=== PATIENT | female | born 1950 | race Caucasian/White ===

== ENCOUNTER → 2016-12-25 | Outpatient (CLI) | payer BC ==
[~2016-12-25] MED LIST: CHOL100010 PO; CONJ0.3T3 PO; IBUP-103 PO; LEVO1TAB PO; OFLO0.3S4 OPR; OMEG12006 PO; PRED1SUS3 OPR
[2016-12-25 09:45] LABS: BASO % 0.5 %; BASO ABS # 0.03 K/uL (0-0.2); COMPLETE YES; EOS % 2.7 %; HEMATOCRIT 38.8 % (37-47); IG% 0.2 %; LYMPH % 31.6 %; LYMPH ABS # 1.77 K/uL (1.2-3.4); MEAN CELL VOLUME 94.4 fL (80-100); MEAN CORPUSCULAR HEMOGLOBIN 30.9 pg (25-34); MEAN CORPUSCULAR HGB CONC 32.7 g/dl (32-36); MEAN PLATELET VOLUME 10.2 fL (7.4-10.4); PLATELET COUNT 266 K/uL (130-400); RED BLOOD COUNT 4.11 M/uL (4.2-5.4)
[2016-12-25 09:59] LABS: ALT/SGPT 22 U/L (12-78); BLOOD UREA NITROGEN 17 mg/dl (7-18); CALCIUM 9.2 mg/dl (8.5-10.1); CARBON DIOXIDE 30 mmol/L (21-32); CHLORIDE 107 mmol/L (98-107); CHOLESTEROL 273 mg/dl (0-200); CREATININE 1.11 mg/dl (0.60-1.20); GLUCOSE 100 mg/dl (70-99); POTASSIUM 4.3 mmol/L (3.5-5.1); SODIUM 142 mmol/L (136-145)
[2016-12-25 10:10] LABS: ALB/GLOB RATIO 1.1 (0.9-2); ALKALINE PHOSPHATASE 63 U/L (45-117); AST/SGOT 15 U/L (15-37); CHOLESTEROL/HDL RATIO 3.4; HDL CHOLESTEROL 81 mg/dl; LDL CHOLESTEROL CALCULATED 162 mg/dl; THYROID STIMULATING HORMONE 0.742 uIu/ml (0.300-4.500); TRIGLYCERIDES 152 mg/dl (0-150); VERY LOW DENSITY LIPOPROT CALC 30 mg/dl
== END | disposition home or self-care (01) ==
LOC: C.LAB1850 07:39
PROVIDERS: ATTEND Internal Medicine
DX: E03.9 Hypothyroidism, unspecified (principal); E55.9 Vitamin D deficiency, unspecified; E78.5 Hyperlipidemia, unspecified; D72.819 Decreased white blood cell count, unspecified; M85.80 Other specified disorders of bone density and structure, unspecified site

== ENCOUNTER 2021-08-28 12:53 | Observation (INO) ==
[2021-08-28 14:38] LABS: Hematocrit (blood only) 41.9 % (34.1-44.9); Hemoglobin 13.7 g/dl (12.0-16.0); Mean Corpuscular Hgb Conc 32.7 g/dL (32.0-36.0); Mean Corpuscular Volume 94.8 fL (80.0-100.0); Mean Platelet Volume 10.2 fL (9.4-12.3); Platelet Count 287 K/uL (130-400); RDW Coefficient of Variation 12.2 % (11.5-14.5); RDW Standard Deviation 42.5 fL (36.4-46.3); Red Blood Count 4.42 M/uL (3.93-5.22); White Blood Count 5.61 K/ul (4.8-10.8)
[2021-08-28 14:47] LABS: Albumin Globulin Ratio 1.7 (0.9-2); Albumin Level 4.7 gm/dl (3.4-5.0); BUN Creatinine Ratio 16.8 (10-20); Bilirubin,Total 0.5 mg/dl (0.2-1.0); Calcium 9.9 mg/dl (8.5-10.1); Creatinine Clr Calc Pharmacy 43.5 ml/min; Est GFR (African American) 64.4 ml/min; Est GFR (Non-African American) 55.6 ml/min; Globulin 2.8 gm/dl (2.5-4.0); Potassium 4.5 mmol/L (3.5-5.1); Total Protein 7.5 gm/dl (6.0-8.3)
[2021-08-28 14:51] LABS: Partial Thromboplastin Ratio 0.9; Partial Thromboplastin Time 24.5 Seconds (21.0-31.0); Prothrombin Time 10.5 Seconds (9.0-12.0)
[2021-08-28] MEDS ORDERED: OPTIRAY 320 125ml IV ONE (14:58)
[2021-08-28] MEDS: SODIUM CHLORIDE 0.9% 1000ML 1,000 ML IV SCH (15:14)
--- NOTE | 2021-08-28 15:23 | CT Scan Report ---
CT angio neck with con, CT angio head w con, CT head/brain wo con CLINICAL HISTORY: facial numbness TECHNIQUE: Contiguous axial CT images of the head were acquired from the base of the skull to the tessa jhon without intravenous contrast administration. CT angiography of the head and neck was performed f ollowing intravenous administration of iodinated contrast. Coronal and sagittal MIPS were obtained fr om the axial data set and were submitted for review. Automated dose lowering techniques and/or adjus tment according to patient size were utilized for this examination. All measurements were calculated based on NASCET criteria. CT DOSE: 974.81 mGy.cm Comparison: None available at the time of this dictation. FINDINGS: CT head: Areas of decreased attenuation are present in the periventricular and subcortical white doni er bilaterally consistent with small vessel ischemic disease. Generalized cerebral atrophy with comme nsurate enlargement of the ventricles, sulci, and cisterns is also present. There is no acute intracr anial hemorrhage or evidence of acute territorial infarction. No shift of the midline structures, mas s effect, or extra-axial abnormalities are shown. Atherosclerotic calcifications are present in the intracranial segments of the internal carotid arteries. Lungs and soft tissues are unremarkable. CTA Neck: A 3 vessel aortic arch is shown. There is no significant atherosclerotic plaque in the aor tic arch or the origins of the innominate, left common carotid, and left subclavian arteries. The c ommon carotid, external carotid, cervical segments of the internal carotid arteries, and the cervical segments of the vertebral arteries are patent without hemodynamically significant stenosis. The left vertebral artery is dominant. CTA Head: The anterior and posterior cerebral circulations are patent. No hemodynamically significan t stenosis, aneurysm, dissection, or arteriovenous malformation is shown. origin of the right p osterior cerebral artery is seen. IMPRESSION: 1. No acute intracranial hemorrhage, evidence of acute territorial infarction, or other acute intrac ranial disease process. 2. No occlusion, hemodynamically significant stenosis, aneurysm, dissection, or arteriovenous malfor mation in the major intracranial arteries. 3. No occlusion, hemodynamically significant stenosis, or dissection in the major cervical arteries. Assessment of stenosis of the internal carotid arteries is based on NASCET criteria. ACT 112: Negative or not required by law. Electronically signed by: Timi Jacobsen M.D. 08/28/2021 3:21 PM
--- NOTE | 2021-08-28 15:30 | Emergency Department Note ---
History of Present Illness General Chief complaint: Neuro Symptoms/Deficit Stated complaint: NUMBNESS IN FACE Time Seen by Provider: 08/28/21 14:35 Source: patient Mode of arrival: ambulatory Limitations: no limitations History of Present Illness Provider complaint: Facial numbness Onset (ago): hour(s) Location: face Maximum Pain Intensity: 3 Treatments prior to arrival: none This is a 71-year-old female who presents the emergency department with concern for facial numbness. Patient states she first noticed this early this morning around 6am. She states it is both sides of her face and starts in her lower forehead. She denies any other numbness or tingling in any other part of her body. Denies headaches, dizziness, vision changes, new tinnitus, trouble swallowing, trouble walking or sense of being off balance. No history of TIA or CVA. Patient states she takes medication for thyroid dysfunction however no heart problems, high blood pressure, or vascular issues. No recent change in medication or new medications. Patient denies any recent illness, fevers, or chills. She states she did have mild swelling around her eye after she thought she was bit on her eyelid by a bug about a week and a half ago. She states she took Benadryl with improvement for several days. Pt seen during a time of high acuity and national emergency pandemic while wearing PPE. Home Medications Medication Instructions Recorded Confirmed Type cholecalciferol (vitamin D3) 100 4,000 unit PO QAM 05/08/18 08/28/21 History mcg (4,000 unit) capsule (Vitamin D3) calcium carbonate 600 mg-vitamin 1 tab PO QAM 12/04/19 08/28/21 History D3 20 mcg (800 unit) chewable tablet (Caltrate 600 plus D) levothyroxine 100 mcg tablet 100 mcg PO DAILY #90 tab 07/20/20 08/28/21 Rx conjugated estrogens 0.625 mg/gram See Rx Instructions .ROUTE 02/16/21 08/28/21 Rx vaginal cream (Premarin) .COMPLEX #30 gram omega 3 350 mg-dha 235 mg-epa 90 2 cap PO QAM 05/09/21 08/28/21 History mg-fish oil 597 mg capsule,delay rel ([place]-3) tobramycin-dexamethasone 0.3 %-0.1 1 applic OPHTHALMIC (EYE) TID 08/28/21 08/28/21 History % eye ointment (TobraDex) atorvastatin 40 mg tablet 40 mg PO DAILY #30 tab 08/29/21 Rx Allergies Allergy/AdvReac Type Severity Reaction Status Date / Time crab Allergy Intermediate RASH, Verified 08/28/21 17:43 SWELLING scallops Allergy Intermediate RASH, Verified 08/28/21 17:43 SWELLING strawberry Allergy Intermediate Rash Verified 08/28/21 17:43 Sulfa (Sulfonamide Allergy Intermediate RASH/SWELLI Verified 08/28/21 17:43 Antibiotics) NG Past Med/Surg History Medical History (Updated 08/29/21 @ 11:12 by Jovanna Henry DO) Cardiac murmur DX'D A CHILD AND DURING -"DISAPPEARED" PER PT- NO MURMUR PER LAST PCP VISIT IN 12/2018 Chronic hand pain Cough Hyperlipidemia Hypothyroidism Impaired fasting glucose Left inguinal hernia Melanoma STAGE 1A-REMOVED FROM-SHOULDER/BACK AREA Osteopenia Tremor Vaginitis and vulvovaginitis Surgical History Cataract (~2015) right eye History of abdominoplasty History of blepharoplasty (~2004) History of carpal tunnel surgery RIGHT History of cataract surgery LEFT History of section, low transverse X2 1972, 1977 History of colonoscopy History of dilation and curettage History of rhytidectomy (~2004) History of tonsillectomy History of tubal ligation Malignant melanoma of upper back (~07/2016) Stage 1A Left upper back Nausea and vomiting after administration of anesthetic agent WITH ANY NARCOTICS PER PT S/P left inguinal hernia repair (12/18/19) Left Open Inguinal Hernia Repair with Mesh Dr. Lofton 12/18/2019 Status post breast reduction Family History Father Cancer Hypertension Stroke Prostate cancer Mother Diabetes Grandfather Diabetes Grandmother (Maternal) Colorectal cancer Grandmother (Paternal) Colorectal cancer Other Myocardial infarction Denies family history of Ovarian cancer Breast cancer Lung cancer Social History Smoking Status: Former smoker Second Hand Exposure: No; Hx Alcohol Use: Yes Alcohol type: wine Alcohol Intake Frequency: Monthly or Less Hx Substance Use: No Preferred Language: Vietnamese Communication Ability: Effective Visual Impairment: Partially Limited Hearing Ability: Normal Business Insurance Agent Required: No Beliefs That Will Affect Care: None marital status: Current Living Situation: Spouse current occupational status: retired current occupation: housewife How many Children do You have: 2 Feels Safe at Home: Yes Childhood Exposure to Second-Hand Smoke: Yes caffeine: Yes Dental Care, Regularly: Yes Physical Activity Frequency: Daily Seatbelt Use: always Sunscreen Use: Yes Assistive Devices: None Review of Systems A total of 10 systems reviewed and were otherwise negative All systems reviewed & are unremarkable except as noted in HPI & below Physical Exam Vital Signs Vital Signs - 24 hr 08/28/21 13:01 08/28/21 14:30 08/28/21 14:31 Temperature 36.7 C Temperature Source Oral Pulse Rate 67 Pulse Rate [Apical] 62 Pulse Rhythm [Apical] Respiratory Rate 20 18 Respiratory Effort / Characteristics Non-Labored Non-Labored Respiratory Depth Normal Normal Respiratory Pattern Regular Blood Pressure Blood Pressure [Left Arm] 220/90 H Blood Pressure Mean Blood Pressure Mean [Left Arm] 133 Blood Pressure Position [Left Arm] Pulse Oximetry 99 98 98 Oxygen Delivery Method Room Air Room Air Room Air Sepsis Recent Fever Within 48 Hours No Sepsis New/Unexplained Change in Mental Status No Sepsis Action Taken by Nursing No Action Required 08/28/21 15:14 08/28/21 16:07 08/28/21 16:46 Temperature Temperature Source Pulse Rate Pulse Rate [Apical] 55 L 55 L 54 L Pulse Rhythm [Apical] Respiratory Rate 16 16 16 Respiratory Effort / Characteristics Respiratory Depth Respiratory Pattern Blood Pressure Blood Pressure [Left Arm] 191/103 H 199/95 H 200/89 H Blood Pressure Mean Blood Pressure Mean [Left Arm] 132 129 126 Blood Pressure Position [Left Arm] Pulse Oximetry 99 98 97 Oxygen Delivery Method Room Air Room Air Sepsis Recent Fever Within 48 Hours Sepsis New/Unexplained Change in Mental Status Sepsis Action Taken by Nursing 08/28/21 18:00 08/28/21 18:14 08/28/21 18:27 Temperature Temperature Source Pulse Rate Pulse Rate [Apical] 56 L 58 L 57 L Pulse Rhythm [Apical] Regular Respiratory Rate 19 16 16 Respiratory Effort / Characteristics Respiratory Depth Respiratory Pattern Blood Pressure Blood Pressure [Left Arm] 187/90 H 209/77 H 178/74 H Blood Pressure Mean Blood Pressure Mean [Left Arm] 122 121 108 Blood Pressure Position [Left Arm] Pulse Oximetry 98 96 97 Oxygen Delivery Method Room Air Sepsis Recent Fever Within 48 Hours Sepsis New/Unexplained Change in Mental Status Sepsis Action Taken by Nursing 08/28/21 19:00 08/28/21 19:45 08/28/21 20:00 Temperature Temperature Source Pulse Rate 58 L 57 L 72 Pulse Rate [Apical] Pulse Rhythm [Apical] Respiratory Rate 14 13 16 Respiratory Effort / Characteristics Respiratory Depth Respiratory Pattern Blood Pressure 195/84 H 210/77 H 184/99 H Blood Pressure [Left Arm] Blood Pressure Mean 121 121 127 Blood Pressure Mean [Left Arm] Blood Pressure Position [Left Arm] Pulse Oximetry 97 97 97 Oxygen Delivery Method Sepsis Recent Fever Within 48 Hours Sepsis New/Unexplained Change in Mental Status Sepsis Action Taken by Nursing 08/28/21 20:15 08/28/21 20:30 08/28/21 20:45 Temperature Temperature Source Pulse Rate 55 L 66 68 Pulse Rate [Apical] Pulse Rhythm [Apical] Respiratory Rate 13 15 17 Respiratory Effort / Characteristics Respiratory Depth Respiratory Pattern Blood Pressure 198/84 H 183/85 H 165/86 H Blood Pressure [Left Arm] Blood Pressure Mean 122 117 112 Blood Pressure Mean [Left Arm] Blood Pressure Position [Left Arm] Pulse Oximetry 98 97 97 Oxygen Delivery Method Sepsis Recent Fever Within 48 Hours Sepsis New/Unexplained Change in Mental Status Sepsis Action Taken by Nursing 08/28/21 21:00 08/28/21 21:18 08/28/21 22:15 Temperature Temperature Source Pulse Rate 75 51 L Pulse Rate [Apical] 65 Pulse Rhythm [Apical] Respiratory Rate 17 15 19 Respiratory Effort / Characteristics Non-Labored Respiratory Depth Normal Respiratory Pattern Regular Blood Pressure 170/81 H 123/57 L Blood Pressure [Left Arm] 151/66 H Blood Pressure Mean 110 79 Blood Pressure Mean [Left Arm] 94 Blood Pressure Position [Left Arm] Lying Pulse Oximetry 94 95 96 Oxygen Delivery Method Room Air Sepsis Recent Fever Within 48 Hours Sepsis New/Unexplained Change in Mental Status Sepsis Action Taken by Nursing 08/28/21 22:30 08/28/21 22:45 08/28/21 23:00 Temperature Temperature Source Pulse Rate 70 62 65 Pulse Rate [Apical] Pulse Rhythm [Apical] Respiratory Rate 18 14 15 Respiratory Effort / Characteristics Respiratory Depth Respiratory Pattern Blood Pressure 146/66 H 136/62 128/61 Blood Pressure [Left Arm] Blood Pressure Mean 92 86 83 Blood Pressure Mean [Left Arm] Blood Pressure Position [Left Arm] Pulse Oximetry 95 95 95 Oxygen Delivery Method Sepsis Recent Fever Within 48 Hours Sepsis New/Unexplained Change in Mental Status Sepsis Action Taken by Nursing GENERAL: alert, well appearing, well nourished, no distress, non-toxic FACE: Symmetric smile, eye brown raise, puffing of cheeks, no other edema or erythema noted to the face EYE EXAM: normal conjunctiva, PERRL and EOM's grossly intact, no ptosis, no periorbital edema, no nystagmus, small area of redness noted along the eyelid margin to the right upper eyelid OROPHARYNX: no exudate, no erythema, lips, buccal mucosa, and tongue normal and mucous membranes are moist NECK: supple, no nuchal rigidity, no adenopathy, non-tender LUNGS: Clear to auscultation. Normal chest wall mechanics, no w/r/r HEART: no murmurs, S1 normal and S2 normal ABDOMEN: abdomen soft, non-tender, normo-active bowel sounds, no masses, no rebound or guarding. BACK: Back is symmetrical on inspection and there is no deformity, no midline tenderness, no CVA tenderness. SKIN: no rashes and no bruising UPPER EXTREMITIES: upper extremities are grossly normal. FROM, nml pulses b/l. LOWER EXTREMITIES: No pitting edema. FROM, nml pulses b/l. NEURO EXAM: Normal sensorium, cranial nerves II-XII grossly intact, normal speech, no gross weakness of arms, no gross weakness of legs. Gross sensation intact. No ataxia. Course Course 1721: Pt updated on results. Will try to lower BP and see if this helps symptoms. 1854: Pt updated. BP slightly improved, pt states face mildly improved. Administered Medications Discontinued Medications Aspirin (Aspirin 81 Mg Ectab) [facility] [place]: 09/28/21 08:59 Last Admin: 08/29/21 08:37 Dose: Not Given Documented by: [id number] Fish Oil ([place]-3 (Purified Fish Oil) 1 Gm Cap) 2 g[facility] [place]: 09/28/21 08:59 Last Admin: 08/29/21 08:35 Dose: 2 gm Documented by: [id number] Hydralazine HCl (Hydralazine Hcl 20 Mg/Ml Vial) 5 mg IV NOW ONE Stop: 08/28/21 19:02 Last Admin: 08/28/21 19:48 Dose: 5 mg Documented by: [id number] Hydralazine HCl (Hydralazine Hcl 20 Mg/Ml Vial) 5 mg IV NOW ONE Stop: 08/28/21 20:24 Last Admin: 08/28/21 20:43 Dose: 5 mg Documented by: [id number] Sodium Chloride (Nss 1000ml) 1,000 mls @ 250 mls/hr IV .Q4H [facility] Stop: 09/27/21 14:59 Last Admin: 08/29/21 00:54 Dose: Not Given Documented by: [id number] Admin: 08/29/21 00:54 Dose: Not Given Documented by: [id number] Infusion: 08/28/21 18:46 Dose: 0 mls/hr Documented by: [id number] Admin: 08/28/21 15:14 Dose: 250 mls/hr Documented by: [id number] Magnesium Sulfate/Dextrose (Magnesium Sulfate / D5w) 1 gm in 100 mls @ 100 mls/hr IV NOW [facility] Stop: 08/28/21 18:40 Last Infusion: 08/28/21 20:23 Dose: 0 mls/hr Documented by: [id number] Admin: 08/28/21 18:00 Dose: 100 mls/hr Documented by: [id number] Ioversol (Optiray 320 125ml) 120 ml IV ONCE ONE Stop: 08/28/21 14:59 Last Admin: 08/28/21 14:58 Dose: 120 ml Documented by: [id number] Levothyroxine Sodium (Levothyroxine Sodium 100 Mcg Tablet) [facility]: 09/28/21 06:29 Last Admin: 08/29/21 06:04 Dose: 100 mcg Documented by: [id number] Lorazepam (Lorazepam 2 Mg/1 Ml Vial) 0.25 mg IV NOW STA; Protocol Stop: 08/28/21 17:42 Last Admin: 08/28/21 18:00 Dose: Not Given Documented by: [id number] Lorazepam (Lorazepam 0.5 Mg Tab) 0.5 mg PO ONCE ONE Stop: 08/28/21 21:29 Last Admin: 08/28/21 21:35 Dose: 0.5 mg Documented by: [id number] Multivitamins/Minerals (Calcium 600mg + Vit D 400 Iu Tab) 1 tab PO QAM [facility] Stop: 09/28/21 08:59 Last Admin: 08/29/21 08:41 Dose: Not Given Documented by: [id number] Tobramycin/Dexamethasone (Tobramycin/Dexamethasone Oph Oint 3.5 Gm Tube) 1 appln OP TID [facility] Stop: 09/06/21 23:59 Last Admin: 08/29/21 08:36 Dose: 1 appln Documented by: [id number] Vitamin D (Cholecalciferol 1,000 Units 25 Mcg Tab) 4,000 units PO QAM [facility] Stop: 09/28/21 08:59 Last Admin: 08/29/21 08:41 Dose: Not Given Documented by: [id number] Medical Decision Making Differential Diagnosis Differential Diagnosis includes but is not limited to ischemic Stroke, hemorrhagic stroke, bells palsy, mass, neoplasm, migraine headache, seizure, subarachnoid hemorrhage, TIA, and transient global amnesia. Medical Records Attestation: I reviewed the patient's medical records. Home Medications Current Medication List: was personally reviewed by me Laboratory Data Attestation: I reviewed the patient's lab results. Result diagrams: 08/29/21 07:01 08/29/21 07:01 Lab Results 08/28/21 08/28/21 08/28/21 Range/Units 14:05 14:05 14:05 WBC 5.61 (4.8-10.8) K/ul RBC 4.42 (3.93-5.22) M/uL Hgb 13.7 (12.0-16.0) g/dl Hct 41.9 (34.1-44.9) % MCV 94.8 (80.0-100.0) fL MCH 31.0 (25.0-34.0) pg MCHC 32.7 (32.0-36.0) g/dL RDW Std Deviation 42.5 (36.4-46.3) fL RDW Coeff of Ryan 12.2 (11.5-14.5) % Plt Count 287 (130-400) K/uL MPV 10.2 (9.4-12.3) fL PT 10.5 (9.0-12.0) Seconds INR 1.0 (0.9-1.1) APTT 24.5 (21.0-31.0) Seconds PTT Ratio 0.9 Sodium 143 (136-145) mmol/L Potassium 4.5 (3.5-5.1) mmol/L Chloride 105 (98-107) mmol/L Carbon Dioxide 32 (21-32) mmol/L Anion Gap 6 (3-11) BUN 17 (6-23) mg/dl Creatinine 1.01 (0.6-1.2) mg/dl Est Cr Clr Drug Dosing 43.5 ml/min Est GFR ( Amer) 64.4 ml/min Est GFR (Non-Af Amer) 55.6 ml/min BUN/Creatinine Ratio 16.8 (10-20) Glucose 94 (70-99(Fasting)) mg/dl Calcium 9.9 (8.5-10.1) mg/dl Magnesium 2.0 (1.7-2.4) mg/dl Total Bilirubin 0.5 (0.2-1.0) mg/dl AST 18 (13-39) U/L ALT 13 (7-52) U/L Alkaline Phosphatase 52 (34-104) U/L Troponin I High Sens (0-14) pg/ml Total Protein 7.5 (6.0-8.3) gm/dl Albumin 4.7 (3.4-5.0) gm/dl Globulin 2.8 (2.5-4.0) gm/dl Albumin/Globulin Ratio 1.7 (0.9-2) Vitamin B12 (180-914) pg/ml 25-OH Vitamin D Total (30-100) ng/ml Folate (>5.38) ng/ml TSH (0.300-4.500) uIu/ml POC Urine pH (4.5-7.5) POC Urine Protein (Negative) POC Ur Glucose (UA) (Normal) POC Urine Ketones (Negative) POC Urine Blood (Negative) POC Urine Nitrite (Negative) POC Urine Bilirubin (Negative) POC Urine Urobilinogen (Normal) POC U Leukocyte Esteras (Negative) Lyme Disease IgG Ab (Negative) Lyme Disease IgM Ab (Negative) SARS-CoV-2 (PCR) (Negative) Influenza Type A (PCR) (Neg) Influenza Type B (PCR) (Neg) RSV (RT-PCR) (Neg) 08/28/21 08/28/21 08/28/21 Range/Units 14:05 14:05 14:05 WBC (4.8-10.8) K/ul RBC (3.93-5.22) M/uL Hgb (12.0-16.0) g/dl Hct (34.1-44.9) % MCV (80.0-100.0) fL MCH (25.0-34.0) pg MCHC (32.0-36.0) g/dL RDW Std Deviation (36.4-46.3) fL RDW Coeff of Ryan (11.5-14.5) % Plt Count (130-400) K/uL MPV (9.4-12.3) fL PT (9.0-12.0) Seconds INR (0.9-1.1) APTT (21.0-31.0) Seconds PTT Ratio Sodium (136-145) mmol/L Potassium (3.5-5.1) mmol/L Chloride (98-107) mmol/L Carbon Dioxide (21-32) mmol/L Anion Gap (3-11) BUN (6-23) mg/dl Creatinine (0.6-1.2) mg/dl Est Cr Clr Drug Dosing ml/min Est GFR ( Amer) ml/min Est GFR (Non-Af Amer) ml/min BUN/Creatinine Ratio (10-20) Glucose (70-99(Fasting)) mg/dl Calcium (8.5-10.1) mg/dl Magnesium (1.7-2.4) mg/dl Total Bilirubin (0.2-1.0) mg/dl AST (13-39) U/L ALT (7-52) U/L Alkaline Phosphatase (34-104) U/L Troponin I High Sens 3.5 (0-14) pg/ml Total Protein (6.0-8.3) gm/dl Albumin (3.4-5.0) gm/dl Globulin (2.5-4.0) gm/dl Albumin/Globulin Ratio (0.9-2) Vitamin B12 425 (180-914) pg/ml 25-OH Vitamin D Total 113.6 H (30-100) ng/ml Folate 9.57 (>5.38) ng/ml TSH 0.618 (0.300-4.500) uIu/ml POC Urine pH (4.5-7.5) POC Urine Protein (Negative) POC Ur Glucose (UA) (Normal) POC Urine Ketones (Negative) POC Urine Blood (Negative) POC Urine Nitrite (Negative) POC Urine Bilirubin (Negative) POC Urine Urobilinogen (Normal) POC U Leukocyte Esteras (Negative) Lyme Disease IgG Ab (Negative) Lyme Disease IgM Ab (Negative) SARS-CoV-2 (PCR) (Negative) Influenza Type A (PCR) (Neg) Influenza Type B (PCR) (Neg) RSV (RT-PCR) (Neg) 08/28/21 08/28/21 08/28/21 Range/Units 14:46 19:56 20:52 WBC (4.8-10.8) K/ul RBC (3.93-5.22) M/uL Hgb (12.0-16.0) g/dl Hct (34.1-44.9) % MCV (80.0-100.0) fL MCH (25.0-34.0) pg MCHC (32.0-36.0) g/dL RDW Std Deviation (36.4-46.3) fL RDW Coeff of Ryan (11.5-14.5) % Plt Count (130-400) K/uL MPV (9.4-12.3) fL PT (9.0-12.0) Seconds INR (0.9-1.1) APTT (21.0-31.0) Seconds PTT Ratio Sodium (136-145) mmol/L Potassium (3.5-5.1) mmol/L Chloride (98-107) mmol/L Carbon Dioxide (21-32) mmol/L Anion Gap (3-11) BUN (6-23) mg/dl Creatinine (0.6-1.2) mg/dl Est Cr Clr Drug Dosing ml/min Est GFR ( Amer) ml/min Est GFR (Non-Af Amer) ml/min BUN/Creatinine Ratio (10-20) Glucose (70-99(Fasting)) mg/dl Calcium (8.5-10.1) mg/dl Magnesium (1.7-2.4) mg/dl Total Bilirubin (0.2-1.0) mg/dl AST (13-39) U/L ALT (7-52) U/L Alkaline Phosphatase (34-104) U/L Troponin I High Sens (0-14) pg/ml Total Protein (6.0-8.3) gm/dl Albumin (3.4-5.0) gm/dl Globulin (2.5-4.0) gm/dl Albumin/Globulin Ratio (0.9-2) Vitamin B12 (180-914) pg/ml 25-OH Vitamin D Total (30-100) ng/ml Folate (>5.38) ng/ml TSH (0.300-4.500) uIu/ml POC Urine pH 7 (4.5-7.5) POC Urine Protein Negative (Negative) POC Ur Glucose (UA) Normal (Normal) POC Urine Ketones Negative (Negative) POC Urine Blood Negative (Negative) POC Urine Nitrite Negative (Negative) POC Urine Bilirubin Negative (Negative) POC Urine Urobilinogen Normal (Normal) POC U Leukocyte Esteras Negative (Negative) Lyme Disease IgG Ab Negative (Negative) Lyme Disease IgM Ab Negative (Negative) SARS-CoV-2 (PCR) NEGATIVE (Negative) Influenza Type A (PCR) Negative (Neg) Influenza Type B (PCR) Negative (Neg) RSV (RT-PCR) Negative (Neg) Imaging Data Radiologist's Impression: Brain MRI 08/28/21 21:17 MR brain wo con CLINICAL HISTORY: facial numbness. COMPARISON STUDY: CT brain from 08/28/2021 TECHNIQUE: Multiplanar multisequence images of the Brain were performed without IV contrast. Diffusion weighted imaging and ADC mapping was also performed. FINDINGS: Extra-axial space: There is no evidence for a subdural hematoma, There are no extra-axial fluid collections. Ventricles and cisterns: The ventricles are normal in size and configuration. There is no evidence for midline shift or mass effect. Parenchyma: There is no evidence for an acute hemorrhage or infarct. No acute diffusion abnormalities are noted on diffusion weighted imaging or ADC mapping. There is normal bauman-white differentiation. There is minimal bright signal seen on T2 and FLAIR weighted sequences within the centrum semiovale and periventricular white matter characteristic of remote small vessel disease. The sulci and gyri appear normal without effacement. The midline structures are unremarkable. The posterior fossa structures appear normal. There is no evidence for mass lesion. Osseous structures: There is asymmetric mucosal thickening involving the left maxillary antrum. The remaining paranasal sinuses are well aerated. The mastoid air cells are well aerated. Soft tissues: No focal soft tissue abnormalities are identified. IMPRESSION: 1. No acute intracranial abnormalities. 2. Evidence for mild remote small vessel disease. 3. Chronic left maxillary sinusitis. ACT 112: Negative or not required by law. Electronically signed by: Avery Oneill M.D. 08/29/2021 7:36 AM MDM Narrative An order was placed for continuous cardiac monitoring. The monitor shows a rate of _68_ with _normal sinus__ rhythm. This is a 71 yo woman who presents with b/l facial numbness. Patient found to be hypertensive in triage which was initially presumed to be related to her concern about her condition. No other paresthesias, no other complaints. Neuro exam was normal and nonfocal. Labs sent and pt sent to CT. CT and CTA reassuring. Labs reassuring. I do not suspect occult infection from recent bug bit, no evidence for facial cellulitis or allergic reaction. Patient's Bp remained elevated. She was cautiously given several medications with minimal improvement and persistent sense of facial numbness. Case discussed with hospitalist for additional evaluation and mgmt. I have a low suspicion for occult CVA/TIA/ICH given reassuring CT/CTA. No evidence of infection. Possible hypertensive urgency, however I do feel there is a component of stress/anxiety contributing to BP elevation also. I do not suspect cardiac etiology. No evidence of Tiki or electrolyte abnormality. Impression & Plan Facial paresthesia, Hypertension Discharge Plan Visit Data Chief Complaint: Neuro Symptoms/Deficit Stated Complaint: NUMBNESS IN FACE ED Provider: Jovanna Henry Discharge Problem: Facial paresthesia, Hypertension Patient Disposition: Admitted As Inpatient Discharge Instructions Interventions: ED Discharge Assessment Last Done: 08/29/21 00:19 Discharge Problem: Hypertension Qualifiers: Hypertension type: unspecified Qualified Code(s): I10 - Essential (primary) hypertension
[2021-08-28 16:32] LABS: Folate (Folic Acid) 9.57 ng/ml (>5.38)
[2021-08-28 16:36] LABS: Vitamin D, 25 Hydrox 113.6 ng/ml (30-100)
[2021-08-28 16:46] LABS: Lyme Ab IgG w/WB Rflx Negative (Negative); Lyme Ab IgM w/WB Rflx Negative (Negative)
[2021-08-28] MEDS ORDERED: LORazepam 2 MG/1 ML VIAL IV STA (17:41)
[2021-08-28] MEDS ORDERED: MAGNESIUM SULFATE / D5W 1 GM/100 ML BAG IV STA (17:41)
[2021-08-28] MEDS ORDERED: hydrALAZINE HCL 20 MG/ML VIAL IV ONE ×2 (19:01→20:23)
[2021-08-28] MEDS ORDERED: LORazepam 0.5 MG TAB PO ONE (21:28)
[2021-08-28 21:56] LABS: Influenza A virus by PCR Negative (Neg); Influenza B virus by PCR Negative (Neg); RSV by PCR Negative (Neg); SARS CoV2 RNA(COVID-19) InHosp NEGATIVE (Negative)
[2021-08-28 23:22] LABS: POC Urine Bilirubin Negative (Negative); POC Urine Blood Negative (Negative); POC Urine Glucose Normal (Normal); POC Urine Ketones Negative (Negative); POC Urine Leukocytes Negative (Negative); POC Urine Nitrite Negative (Negative); POC Urine Protein Negative (Negative); POC Urine Urobilinogen Normal (Normal); POC Urine pH 7 (4.5-7.5)
--- NOTE | 2021-08-28 23:39 | History & Physical Report ---
Date of Service August 28, 2021 Assessment & Plan (1) Facial numbness: Plan: Symmetrical bilateral facial numbness- CT head, CTA head and neck all negative MRI brain with small amount of chronic small vessel disease Admit with stroke without tPA order set No suggestion of MS on imaging Order echocardiogram (2) Hyperlipidemia: Plan: Check a fasting lipid panel, on no recent treatment (3) Hypothyroidism: Plan: Continue levothyroxine 100 mcg daily (4) Impaired fasting glucose: Plan: Check hemoglobin A1c (5) Vitamin D deficiency: Plan: Continue vitamin D3 (6) Cardiac murmur: Plan: Murmur noted on examination. Reports having had a murmur when she was Order complete echocardiogram as noted History of Present Illness Chief Complaint: The patient presents to the emergency department with facial numbness extending from forehead down to her jaw bilaterally, that it began upon awakening this morning Primary Care Provider: Brock Ortiz MD The patient is a 71-year-old female with a past medical history including lumbar spinal stenosis, chronic venous insufficiency, hyperlipidemia, hypothyroidism, impaired fasting glucose, tremor and vitamin D deficiency. She presents with symptoms as noted above, that have persisted throughout the day without changing in intensity. The only other symptom she has noted is some slight numbness in the tip of her right index finger, that she noticed upon arrival in the ED. She denied any recent change in physical activity. She denies any recent travel or sick exposures. She denies vision change, hearing loss, difficulty with speech or swallowing, memory function or any other focal weakness or change in sensation in upper or lower extremities. Allergies Allergy/AdvReac Type Severity Reaction Status Date / Time crab Allergy Intermediate RASH, Verified 08/28/21 17:43 SWELLING scallops Allergy Intermediate RASH, Verified 08/28/21 17:43 SWELLING strawberry Allergy Intermediate Rash Verified 08/28/21 17:43 Sulfa (Sulfonamide Allergy Intermediate RASH/SWELLI Verified 08/28/21 17:43 Antibiotics) NG Home Medications Medication Instructions Recorded Confirmed Type cholecalciferol (vitamin D3) 100 4,000 unit PO QAM 05/08/18 08/28/21 History mcg (4,000 unit) capsule (Vitamin D3) calcium carbonate 600 mg-vitamin 1 tab PO QAM 12/04/19 08/28/21 History D3 20 mcg (800 unit) chewable tablet (Caltrate 600 plus D) levothyroxine 100 mcg tablet 100 mcg PO DAILY #90 tab 07/20/20 08/28/21 Rx conjugated estrogens 0.625 mg/gram See Rx Instructions .ROUTE 02/16/21 08/28/21 Rx vaginal cream (Premarin) .COMPLEX #30 gram omega 3 350 mg-dha 235 mg-epa 90 2 cap PO QAM 05/09/21 08/28/21 History mg-fish oil 597 mg capsule,delay rel ([place]-3) tobramycin-dexamethasone 0.3 %-0.1 1 applic OPHTHALMIC (EYE) TID 08/28/21 08/28/21 History % eye ointment (TobraDex) Past Med/Surg History Medical History (Updated 08/29/21 @ 03:09 by Brandon White MD) Cardiac murmur DX'D A CHILD AND DURING -"DISAPPEARED" PER PT- NO MURMUR PER LAST PCP VISIT IN 12/2018 Chronic hand pain Cough Hyperlipidemia Hypothyroidism Impaired fasting glucose Left inguinal hernia Melanoma STAGE 1A-REMOVED FROM-SHOULDER/BACK AREA Osteopenia Tremor Vaginitis and vulvovaginitis Surgical History Cataract (~2015) right eye History of abdominoplasty History of blepharoplasty (~2004) History of carpal tunnel surgery RIGHT History of cataract surgery LEFT History of section, low transverse X2 1972, 1977 History of colonoscopy History of dilation and curettage History of rhytidectomy (~2004) History of tonsillectomy History of tubal ligation Malignant melanoma of upper back (~07/2016) Stage 1A Left upper back Nausea and vomiting after administration of anesthetic agent WITH ANY NARCOTICS PER PT S/P left inguinal hernia repair (12/18/19) Left Open Inguinal Hernia Repair with Mesh Dr. Lofton 12/18/2019 Status post breast reduction Family History Father Cancer Hypertension Stroke Prostate cancer Mother Diabetes Grandfather Diabetes Grandmother (Maternal) Colorectal cancer Grandmother (Paternal) Colorectal cancer Other Myocardial infarction Denies family history of Ovarian cancer Breast cancer Lung cancer Social History Smoking Status: Former smoker Second Hand Exposure: No; Do You Dip or Chew Tobacco: No; Tobacco Cessation Education Requested by Patient: No Hx Alcohol Use: Yes Alcohol type: wine Alcohol Intake Frequency: Monthly or Less Hx Substance Use: No Preferred Language: Croatian Communication Ability: Effective Visual Impairment: Partially Limited Hearing Ability: Normal 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 Beliefs That Will Affect Care: None marital status: Current Living Situation: Spouse current occupational status: retired current occupation: housewife How many Children do You have: 2 Other Information That Helps Us Care for You: No Feels Safe at Home: Yes Safety Concerns: Feels Safe At This Time Childhood Exposure to Second-Hand Smoke: Yes caffeine: Yes Dental Care, Regularly: Yes Physical Activity Frequency: Daily Seatbelt Use: always Sunscreen Use: Yes Assistive Devices: None Review of Systems Review of Systems: The patient denies chest pain, palpitations, shortness of breath, dyspnea on exertion, cough, lower extremity swelling, sore throat, fevers, chills, sweats, weight change, fatigue, nausea, vomiting, diarrhea , constipation, abdominal pain, pelvic pain, blood in urine or stool, dysuria, urinary frequency or urgency, lightheadedness, dizziness, headache, memory loss, loss of consciousness, rash, abnormal bruising or bleeding, imbalance, focal or generalized weakness, numbness or tingling in arms or legs, generalized arthralgias or myalgias, back or neck pain, or night sweats. The review of systems is otherwise negative other than for that already noted above, and at least 10 systems have been reviewed. Physical Exam Physical Exam: The patient is awake, alert and oriented 3, well developed and well nourished, normocephalic and atraumatic, lying in bed and in no acute distress. HEENT--PERRL, EOMI, mucous membranes and oropharynx dry. Neck--supple. No JVD. No bruits. Thyroid normal, trachea midline, no adenopathy. Heart--normal S1 and S2. Heart murmur right upper sternal border. No rubs or gallops. Lungs--clear bilaterally, no respiratory distress, no accessory muscle use. Abdomen--normal bowel sounds and soft. Nontender. Nondistended, no hernias or masses, no organomegaly. Extremities--no cyanosis or clubbing. No edema. Dermatologic--normal skin turgor, normal color, no abnormal lymph nodes, no rash. Neurologic--cranial nerves II through XII grossly intact. Rheumatologic--normal range of motion. Psychiatric--normal affect. Results & Data Results & Data ([facility]) Vital Signs (Past 12 Hours) Vital Signs Temp Pulse Pulse Resp BP BP Pulse Ox 08/28/21 23:00 65 15 128/61 95 08/28/21 22:45 62 14 136/62 95 08/28/21 22:30 70 18 146/66 H 95 08/28/21 22:15 65 19 151/66 H 96 08/28/21 21:18 51 L 15 123/57 L 95 08/28/21 21:00 75 17 170/81 H 94 08/28/21 20:45 68 17 165/86 H 97 08/28/21 20:30 66 15 183/85 H 97 08/28/21 20:15 55 L 13 198/84 H 98 08/28/21 20:00 72 16 184/99 H 97 08/28/21 19:45 57 L 13 210/77 H 97 08/28/21 19:00 58 L 14 195/84 H 97 08/28/21 18:27 57 L 16 178/74 H 97 08/28/21 18:14 58 L 16 209/77 H 96 08/28/21 18:00 56 L 19 187/90 H 98 08/28/21 16:46 54 L 16 200/89 H 97 08/28/21 16:07 55 L 16 199/95 H 98 08/28/21 15:14 55 L 16 191/103 H 99 08/28/21 14:31 98 08/28/21 14:30 62 18 220/90 H 98 08/28/21 13:01 36.7 C 67 20 99 Laboratory Results Laboratory Results WBC 5.61 K/ul (4.8-10.8) 08/28/21 14:05 RBC 4.42 M/uL (3.93-5.22) 08/28/21 14:05 Hgb 13.7 g/dl (12.0-16.0) 08/28/21 14:05 Hct 41.9 % (34.1-44.9) 08/28/21 14:05 MCV 94.8 fL (80.0-100.0) 08/28/21 14:05 MCH 31.0 pg (25.0-34.0) 08/28/21 14:05 MCHC 32.7 g/dL (32.0-36.0) 08/28/21 14:05 RDW Std Deviation 42.5 fL (36.4-46.3) 08/28/21 14:05 RDW Coeff of Ryan 12.2 % (11.5-14.5) 08/28/21 14:05 Plt Count 287 K/uL (130-400) 08/28/21 14:05 MPV 10.2 fL (9.4-12.3) 08/28/21 14:05 PT 10.5 Seconds (9.0-12.0) 08/28/21 14:05 INR 1.0 (0.9-1.1) 08/28/21 14:05 APTT 24.5 Seconds (21.0-31.0) 08/28/21 14:05 PTT Ratio 0.9 08/28/21 14:05 Sodium 143 mmol/L (136-145) 08/28/21 14:05 Potassium 4.5 mmol/L (3.5-5.1) 08/28/21 14:05 Chloride 105 mmol/L (98-107) 08/28/21 14:05 Carbon Dioxide 32 mmol/L (21-32) 08/28/21 14:05 Anion Gap 6 (3-11) 08/28/21 14:05 BUN 17 mg/dl (6-23) 08/28/21 14:05 Creatinine 1.01 mg/dl (0.6-1.2) 08/28/21 14:05 Est Cr Clr Drug Dosing 43.5 ml/min 08/28/21 14:05 Est GFR ( Amer) 64.4 ml/min 08/28/21 14:05 Est GFR (Non-Af Amer) 55.6 ml/min 08/28/21 14:05 BUN/Creatinine Ratio 16.8 (10-20) 08/28/21 14:05 Glucose 94 mg/dl (70-99(Fasting)) 08/28/21 14:05 Calcium 9.9 mg/dl (8.5-10.1) 08/28/21 14:05 Magnesium 2.0 mg/dl (1.7-2.4) 08/28/21 14:05 Total Bilirubin 0.5 mg/dl (0.2-1.0) 08/28/21 14:05 AST 18 U/L (13-39) 08/28/21 14:05 ALT 13 U/L (7-52) 08/28/21 14:05 Alkaline Phosphatase 52 U/L (34-104) 08/28/21 14:05 Troponin I High Sens 3.5 pg/ml (0-14) 08/28/21 14:05 Total Protein 7.5 gm/dl (6.0-8.3) 08/28/21 14:05 Albumin 4.7 gm/dl (3.4-5.0) 08/28/21 14:05 Globulin 2.8 gm/dl (2.5-4.0) 08/28/21 14:05 Albumin/Globulin Ratio 1.7 (0.9-2) 08/28/21 14:05 Vitamin B12 425 pg/ml (180-914) 08/28/21 14:05 25-OH Vitamin D Total 113.6 ng/ml (30-100) H 08/28/21 14:05 Folate 9.57 ng/ml (>5.38) 08/28/21 14:05 TSH 0.618 uIu/ml (0.300-4.500) 08/28/21 14:05 POC Urine pH 7 (4.5-7.5) 08/28/21 19:56 POC Urine Protein Negative (Negative) 08/28/21 19:56 POC Ur Glucose (UA) Normal (Normal) 08/28/21 19:56 POC Urine Ketones Negative (Negative) 08/28/21 19:56 POC Urine Blood Negative (Negative) 08/28/21 19:56 POC Urine Nitrite Negative (Negative) 08/28/21 19:56 POC Urine Bilirubin Negative (Negative) 08/28/21 19:56 POC Urine Urobilinogen Normal (Normal) 08/28/21 19:56 POC U Leukocyte Esteras Negative (Negative) 08/28/21 19:56 Lyme Disease IgG Ab Negative (Negative) 08/28/21 14:46 Lyme Disease IgM Ab Negative (Negative) 08/28/21 14:46 SARS-CoV-2 (PCR) NEGATIVE (Negative) 08/28/21 20:52 Influenza Type A (PCR) Negative (Neg) 08/28/21 20:52 Influenza Type B (PCR) Negative (Neg) 08/28/21 20:52 RSV (RT-PCR) Negative (Neg) 08/28/21 20:[address] 08/28/21 14:29 CT angio neck with con, CT angio head w con, CT head/brain wo con CLINICAL HISTORY: facial numbness TECHNIQUE: Contiguous axial CT images of the head were acquired from the base of the skull to the vertex without intravenous contrast administration. CT angiography of the head and neck was performed following intravenous administration of iodinated contrast. Coronal and sagittal MIPS were obtained from the axial data set and were submitted for review. Automated dose lowering techniques and/or adjustment according to patient size were utilized for this examination. All measurements were calculated based on NASCET criteria. CT DOSE: 974.81 mGy.cm Comparison: None available at the time of this dictation. FINDINGS: CT head: Areas of decreased attenuation are present in the periventricular and subcortical white matter bilaterally consistent with small vessel ischemic disease. Generalized cerebral atrophy with commensurate enlargement of the ventricles, sulci, and cisterns is also present. There is no acute intracranial hemorrhage or evidence of acute territorial infarction. No shift of the midline structures, mass effect, or extra-axial abnormalities are shown. Atherosclerotic calcifications are present in the intracranial segments of the internal carotid arteries. Lungs and soft tissues are unremarkable. CTA Neck: A 3 vessel aortic arch is shown. There is no significant atherosclerotic plaque in the aortic arch or the origins of the innominate, left common carotid, and left subclavian arteries. The common carotid, external carotid, cervical segments of the internal carotid arteries, and the cervical segments of the vertebral arteries are patent without hemodynamically significant stenosis. The left vertebral artery is dominant. CTA Head: The anterior and posterior cerebral circulations are patent. No hemodynamically significant stenosis, aneurysm, dissection, or arteriovenous malformation is shown. origin of the right posterior cerebral artery is seen. IMPRESSION: 1. No acute intracranial hemorrhage, evidence of acute territorial infarction, or other acute intracranial disease process. 2. No occlusion, hemodynamically significant stenosis, aneurysm, dissection, or arteriovenous malformation in the major intracranial arteries. 3. No occlusion, hemodynamically significant stenosis, or dissection in the major cervical arteries. Assessment of stenosis of the internal carotid arteries is based on NASCET criteria. ACT 112: Negative or not required by law. Electronically signed by: Timi Jacobsen M.D. 08/28/2021 3:21 PM Head CTA 08/28/21 14:46 CT angio neck with con, CT angio head w con, CT head/brain wo con CLINICAL HISTORY: facial numbness TECHNIQUE: Contiguous axial CT images of the head were acquired from the base of the skull to the vertex without intravenous contrast administration. CT angiography of the head and neck was performed following intravenous administration of iodinated contrast. Coronal and sagittal MIPS were obtained from the axial data set and were submitted for review. Automated dose lowering techniques and/or adjustment according to patient size were utilized for this examination. All measurements were calculated based on NASCET criteria. CT DOSE: 974.81 mGy.cm Comparison: None available at the time of this dictation. FINDINGS: CT head: Areas of decreased attenuation are present in the periventricular and subcortical white matter bilaterally consistent with small vessel ischemic disease. Generalized cerebral atrophy with commensurate enlargement of the ventricles, sulci, and cisterns is also present. There is no acute intracranial hemorrhage or evidence of acute territorial infarction. No shift of the midline structures, mass effect, or extra-axial abnormalities are shown. Atherosclerotic calcifications are present in the intracranial segments of the internal carotid arteries. Lungs and soft tissues are unremarkable. CTA Neck: A 3 vessel aortic arch is shown. There is no significant atherosclerotic plaque in the aortic arch or the origins of the innominate, left common carotid, and left subclavian arteries. The common carotid, external carotid, cervical segments of the internal carotid arteries, and the cervical segments of the vertebral arteries are patent without hemodynamically significant stenosis. The left vertebral artery is dominant. CTA Head: The anterior and posterior cerebral circulations are patent. No hemodynamically significant stenosis, aneurysm, dissection, or arteriovenous malformation is shown. origin of the right posterior cerebral artery is seen. IMPRESSION: 1. No acute intracranial hemorrhage, evidence of acute territorial infarction, or other acute intracranial disease process. 2. No occlusion, hemodynamically significant stenosis, aneurysm, dissection, or arteriovenous malformation in the major intracranial arteries. 3. No occlusion, hemodynamically significant stenosis, or dissection in the major cervical arteries. Assessment of stenosis of the internal carotid arteries is based on NASCET criteria. ACT 112: Negative or not required by law. Electronically signed by: Timi Jacobsen M.D. 08/28/2021 3:21 PM Neck CTA 08/28/21 14:46 CT angio neck with con, CT angio head w con, CT head/brain wo con CLINICAL HISTORY: facial numbness TECHNIQUE: Contiguous axial CT images of the head were acquired from the base of the skull to the vertex without intravenous contrast administration. CT angiography of the head and neck was performed following intravenous administration of iodinated contrast. Coronal and sagittal MIPS were obtained from the axial data set and were submitted for review. Automated dose lowering techniques and/or adjustment according to patient size were utilized for this examination. All measurements were calculated based on NASCET criteria. CT DOSE: 974.81 mGy.cm Comparison: None available at the time of this dictation. FINDINGS: CT head: Areas of decreased attenuation are present in the periventricular and subcortical white matter bilaterally consistent with small vessel ischemic disease. Generalized cerebral atrophy with commensurate enlargement of the ventricles, sulci, and cisterns is also present. There is no acute intracranial hemorrhage or evidence of acute territorial infarction. No shift of the midline structures, mass effect, or extra-axial abnormalities are shown. Atherosclerotic calcifications are present in the intracranial segments of the internal carotid arteries. Lungs and soft tissues are unremarkable. CTA Neck: A 3 vessel aortic arch is shown. There is no significant at herosclerotic plaque in the aortic arch or the origins of the innominate, left common carotid, and left subclavian arteries. The common carotid, external carotid, cervical segments of the internal carotid arteries, and the cervical segments of the vertebral arteries are patent without hemodynamically significant stenosis. The left vertebral artery is dominant. CTA Head: The anterior and posterior cerebral circulations are patent. No hemodynamically significant stenosis, aneurysm, dissection, or arteriovenous malformation is shown. origin of the right posterior cerebral artery is se en. IMPRESSION: 1. No acute intracranial hemorrhage, evidence of acute territorial infarction, or other acute intracranial disease process. 2. No occlusion, hemodynamically significant stenosis, aneurysm, dissection, or arteriovenous malformation in the major intracranial arteries. 3. No occlusion, hemodynamically significant stenosis, or dissection in the major cervical arteries. Assessment of stenosis of the internal carotid arteries is based on NASCET criteria. ACT 112: Negative or not required by law. Electronically signed by: Timi Jacobsen M.D. 08/28/2021 3:21 PM Code Status & VTE Plan Code Status Full code VTE Prophylaxis Plan VTE Prophylaxis will be ordered: Yes PG Care Time/CCT Total # of Minutes Spent Total Time Spent with Patient: Total time spent is greater than 50% in coordination of care (as documented) at patient's floor/unit and/or counseling patient: Coding Level of Care Code INT OBSERVATION CARE 70M LVL 3 Diagnoses Facial numbness R20.0 Hyperlipidemia E78.00; E78.0 Hyperlipidemia type: pure hypercholesterolemia Hypothyroidism E03.9 Hypothyroidism type: acquired Impaired fasting glucose R73.01 Vitamin D deficiency E55.9 Cardiac murmur R01.1 (1) Hyperlipidemia Hyperlipidemia type: pure hypercholesterolemia Qualified Code(s): E78.00 - Pure hypercholesterolemia, unspecified; E78.0 - Pure hypercholesterolemia (2) Hypothyroidism Hypothyroidism type: acquired Qualified Code(s): E03.9 - Hypothyroidism, unspecified
[2021-08-28] MEDS ORDERED: PHARMACIST DISCHARGE MED REC CONSULT PRN (23:53)
[2021-08-29] MEDS: SODIUM CHLORIDE 0.9% 1000ML 1,000 ML IV SCH (00:54)
[2021-08-29] MEDS ORDERED: ONDANSETRON INJ 2 MG/ML 2 ML VIAL IV PRN (00:57)
[2021-08-29] MEDS ORDERED: ACETAMINOPHEN 325 MG TAB PO PRN (00:57)
[2021-08-29] MEDS ORDERED: LEVOTHYROXINE SODIUM 100 MCG TABLET PO SCH (06:30)
[2021-08-29 07:20] LABS: Basophils # (auto) 0.06 K/uL (0-0.2); Basophils % (auto) 1.1 %; Eosinophils # (auto) 0.14 K/uL (0-0.50); Eosinophils % (auto) 2.5 %; Hematocrit (blood only) 36.9 % (34.1-44.9); Hemoglobin 12.3 g/dl (12.0-16.0); Immature Granulocytes # (auto) 0.01 K/uL (0.00-0.02); Immature Granulocytes % (auto) 0.2 %; Lymphocytes # (auto) 1.82 K/uL (1.2-3.4); Lymphocytes % (auto) 32.2 %; Mean Corpuscular Hemoglobin 30.9 pg (25.0-34.0); Mean Corpuscular Hgb Conc 33.3 g/dL (32.0-36.0); Mean Corpuscular Volume 92.7 fL (80.0-100.0); Mean Platelet Volume 10.2 fL (9.4-12.3); Monocytes # (auto) 0.62 K/uL (0.24-0.82); Neutrophils # (auto) 3.01 K/uL (1.4-6.5); Platelet Count 242 K/uL (130-400); RDW Coefficient of Variation 12.4 % (11.5-14.5); RDW Standard Deviation 42.4 fL (36.4-46.3); Red Blood Count 3.98 M/uL (3.93-5.22); White Blood Count 5.66 K/ul (4.8-10.8)
--- NOTE | 2021-08-29 07:39 | Magnetic Resonance Report ---
MR brain wo con CLINICAL HISTORY: facial numbness. COMPARISON STUDY: CT brain from 08/28/2021 TECHNIQUE: Multiplanar multisequence images of the Brain were performed without IV contrast. Diffusi on weighted imaging and ADC mapping was also performed. FINDINGS: Extra-axial space: There is no evidence for a subdural hematoma, There are no extra-axial fluid rebekah ections. Ventricles and cisterns: The ventricles are normal in size and configuration. There is no evidence f or midline shift or mass effect. Parenchyma: There is no evidence for an acute hemorrhage or infarct. No acute diffusion abnormalities are noted on diffusion weighted imaging or ADC mapping. There is normal bauman-white differentiation. There is minimal bright signal seen on T2 and FLAIR weighted sequences within the centrum semiovale and periventricular white matter characteristic of remote small vessel disease. The sulci and gyri ap pear normal without effacement. The midline structures are unremarkable. The posterior fossa structur es appear normal. There is no evidence for mass lesion. Osseous structures: There is asymmetric mucosal thickening involving the left maxillary antrum. The r emaining paranasal sinuses are well aerated. The mastoid air cells are well aerated. Soft tissues: No focal soft tissue abnormalities are identified. IMPRESSION: 1. No acute intracranial abnormalities. 2. Evidence for mild remote small vessel disease. 3. Chronic left maxillary sinusitis. ACT 112: Negative or not required by law. Electronically signed by: Avery Oneill M.D. 08/29/2021 7:36 AM
[2021-08-29 07:47] LABS: Albumin Level 3.9 gm/dl (3.4-5.0); Calcium 9.2 mg/dl (8.5-10.1); Chol HDL Ratio 3.5 (0-5); Creatinine Clr Calc Pharmacy 43.9 ml/min; Est GFR (African American) 65.2 ml/min; Est GFR (Non-African American) 56.2 ml/min; Phosphorus 3.6 mg/dl (2.5-4.9); Potassium 4.1 mmol/L (3.5-5.1)
--- NOTE | 2021-08-29 08:25 | Neurology Consultation ---
Date of Consultation August 29, 2021 Assessment & Plan (1) Facial numbness: Resolved episode of bilateral facial numbness occurring without any other associated neurologic symptoms. I explained to the patient that I do not really have a neurologic explanation for transient sensory symptoms. Her symptoms would be very unusual for stroke, multiple sclerosis, migraine phenomenon, seizures or other paroxysmal neurologic disorders. The facial numbness occurs about 1 week after an insect bite around the right eye that resulted in significant swelling. However, the relationship would be uncertain at best. Would check a Lyme screen, reflex to Western blot. Patient does have age-related chronic small vessel ischemic change on her brain MRI. Her total cholesterol and LDL are elevated. It may be reasonable to consider a statin. No further immediate recommendations. History of Present Illness Reason for Consultation: Facial numbness Requesting Physician: Brandon White MD Attending Physician: Brenton Diego MD History of Present Illness The patient is a 71-year-old female with a chief complaint of bilateral facial numbness, upper, middle, and lower face, that she noticed upon awakening from sleep yesterday morning. The numbness persisted throughout the day and evening and was not associated with any other neurologic symptoms such as headache, vision change, vertigo, change in speech or swallowing, numbness of the limbs, torso, or abdomen, weakness of the limbs, or difficulty with coordination or balance. Her bilateral facial numbness resolved upon awakening this morning. She has never had similar symptoms previously, no known history of stroke, TIA, migraine, or concern for multiple sclerosis in the past. She does recall having an insect bite near the right eye about 1 week ago resulting in some swelling at that time. This issue has also resolved. No other recent illnesses. No vaccinations recently. She is currently asymptomatic, feeling well. Allergies Allergy/AdvReac Type Severity Reaction Status Date / Time crab Allergy Intermediate RASH, Verified 08/28/21 17:43 SWELLING scallops Allergy Intermediate RASH, Verified 08/28/21 17:43 SWELLING strawberry Allergy Intermediate Rash Verified 08/28/21 17:43 Sulfa (Sulfonamide Allergy Intermediate RASH/SWELLI Verified 08/28/21 17:43 Antibiotics) NG Home Medications Medication Instructions Recorded Confirmed Type cholecalciferol (vitamin D3) 100 4,000 unit PO QAM 05/08/18 08/28/21 History mcg (4,000 unit) capsule (Vitamin D3) calcium carbonate 600 mg-vitamin 1 tab PO QAM 12/04/19 08/28/21 History D3 20 mcg (800 unit) chewable tablet (Caltrate 600 plus D) levothyroxine 100 mcg tablet 100 mcg PO DAILY #90 tab 07/20/20 08/28/21 Rx conjugated estrogens 0.625 mg/gram See Rx Instructions .ROUTE 02/16/21 08/28/21 Rx vaginal cream (Premarin) .COMPLEX #30 gram omega 3 350 mg-dha 235 mg-epa 90 2 cap PO QAM 05/09/21 08/28/21 History mg-fish oil 597 mg capsule,delay rel (Foster-3) tobramycin-dexamethasone 0.3 %-0.1 1 applic OPHTHALMIC (EYE) TID 08/28/21 08/28/21 History % eye ointment (TobraDex) Patient History Medical History (Updated 08/29/21 @ 03:09 by Brandon White MD) Cardiac murmur DX'D A CHILD AND DURING -"DISAPPEARED" PER PT- NO MURMUR PER LAST PCP VISIT IN 12/2018 Chronic hand pain Cough Hyperlipidemia Hypothyroidism Impaired fasting glucose Left inguinal hernia Melanoma STAGE 1A-REMOVED FROM-SHOULDER/BACK AREA Osteopenia Tremor Vaginitis and vulvovaginitis Surgical History Cataract (~2015) right eye History of abdominoplasty History of blepharoplasty (~2004) History of carpal tunnel surgery RIGHT History of cataract surgery LEFT History of section, low transverse X2 1972, 1977 History of colonoscopy History of dilation and curettage History of rhytidectomy (~2004) History of tonsillectomy History of tubal ligation Malignant melanoma of upper back (~07/2016) Stage 1A Left upper back Nausea and vomiting after administration of anesthetic agent WITH ANY NARCOTICS PER PT S/P left inguinal hernia repair (12/18/19) Left Open Inguinal Hernia Repair with Mesh Dr. Lofton 12/18/2019 Status post breast reduction Family History Father Cancer Hypertension Stroke Prostate cancer Mother Diabetes Grandfather Diabetes Grandmother (Maternal) Colorectal cancer Grandmother (Paternal) Colorectal cancer Other Myocardial infarction Denies family history of Ovarian cancer Breast cancer Lung cancer Social History Smoking Status: Former smoker Second Hand Exposure: No; Do You Dip or Chew Tobacco: No; Tobacco Cessation Education Requested by Patient: No Hx Alcohol Use: Yes Alcohol type: wine Alcohol Intake Frequency: Monthly or Less Hx Substance Use: No Preferred Language: Luxembourgish Communication Ability: Effective Visual Impairment: Partially Limited Hearing Ability: Normal Box Lidder Required: No Beliefs That Will Affect Care: None marital status: Current Living Situation: Spouse current occupational status: retired current occupation: housewife How many Children do You have: 2 Other Information That Helps Us Care for You: No Feels Safe at Home: Yes Safety Concerns: Feels Safe At This Time Childhood Exposure to Second-Hand Smoke: Yes caffeine: Yes Dental Care, Regularly: Yes Physical Activity Frequency: Daily Seatbelt Use: always Sunscreen Use: Yes Assistive Devices: None Review of Systems Constitutional: no fever and no chills Eyes: no blind spots and no diplopia Ear, Nose, Mouth, Throat: no ear pain and no hearing loss Respiratory: no cough and no dyspnea Cardiovascular: no chest pain and no palpitations Gastrointestinal: no constipation and no diarrhea/loose stools Genitourinary: no urinary urgency and no urinary incontinence Musculoskeletal: no muscle weakness and no muscle atrophy Integumentary: no rash and no lesions Neurologic: as per Subjective / HPI Psychiatric: no behavioral changes, no depression, no abnormal sleep pattern and no anxiety Hematologic / Lymphatic: no easy bruising and no lymphadenopathy Exam (Neuro) Constitutional: well developed and well nourished; no acute distress Eyes: normal visual noland by confrontation, PERRL, normal accommodation and EOM intact bilaterally; no fundoscopic abnormality, no nystagmus and no papilledema Cardiovascular: Vessels: normal carotid upstroke; no carotid bruit Neurologic: Oriented to:: Person, Place and Time Memory: Short Term Intact and Remote Intact Attention: Span Intact and Concentration Intact Language: Naming Objects and Repeating Phrases Speech Fluency: negative Dysarthria Speech Aphasia: negative Aphasia Fund of Knowledge: Current Events, Past History and Vocabulary Cranial Nerves: Normal II (Visual noland full to confrontation, visual acuity normal), III, IV, (Pupils equal round reactive to light and accommodation, eye movements normal), V (Facial sensation intact), VII (There is no facial droop or weakness), VIII (Hearing intact), IX, X (Palate elevates to midline), XI (Shoulder shrug intact) and XII (Tongue protrudes to midline) Motor Strength: Normal Lower Extremities and Normal Upper Extremities; negative Pronator Drift Motor Tone: Normal Lower Extr emities and Normal Upper Extremities Muscle Bulk/Involuntary Movements: No Involuntary Movements; negative Muscle Atrophy Sensation: Light Touch Intact, Pain/Temperature Intact, Vibration Intact and Proprioception Intact Coordination: Normal; negative Limited Balance, Dysdiadochokinesia, Finger-Nose Abnormal or Heel-Marx Abnormal Deep Tendon Reflexes: Rt Triceps: 2+, Lt Triceps: 2+, Rt Biceps: 2+, Lt Biceps: 2+, Rt Brachioradialis: 2+, Lt Brachioradialis: 2+, Rt Patellar: 2+, Lt Patellar: 2+, Rt Ankle: 2+ and Lt Ankle: 2+ Special Tests: negative Babinski Present Gait: Normal Station and Gait Results & Data ([facility]) Vital Signs (Past 12 Hours) Vital Signs Temp Pulse Pulse Resp BP BP Pulse Ox 08/29/21 07:15 36.5 C 65 18 137/70 98 08/29/21 03:25 36.7 C 55 L 18 131/55 L 97 08/29/21 01:16 36.3 C L 90 15 147/62 H 97 08/29/21 00:41 62 08/29/21 00:00 60 15 121/57 L 97 08/28/21 23:00 65 15 128/61 95 08/28/21 22:45 62 14 136/62 95 08/28/21 22:30 70 18 146/66 H 95 08/28/21 22:15 65 19 151/66 H 96 08/28/21 21:18 51 L 15 123/57 L 95 08/28/21 21:00 75 17 170/81 H 94 08/28/21 20:45 68 17 165/86 H 97 08/28/21 20:30 66 15 183/85 H 97 Laboratory Results WBC 5.66, hemoglobin 12.3, hematocrit 36.9, MCV 92.7, platelet count 242, sodium 142, potassium 4.1, BUN 13, creatinine 1.00, glucose 95, calcium 9.2, magnesium 2.0, AST 18, ALT 13, triglycerides 99, cholesterol 239, LDL 150, VLDL 20, HDL 69, vitamin D 113.6, folate 0.57, TSH 0.[address] of the head, CT angiography of the head and neck unremarkable. Brain MRI negative for acute or subacute infarct. There is minimal age-appropriate chronic small vessel ischemic change. There is evidence of chronic left maxillary sinusitis. No significant parenchymal pathology identified. I independently reviewed these images and agree with the radiologist's interpretation as above. Electrocardiogram reveals sinus bradycardia, incomplete right bundle branch block, 58 bpm. Coding Level of Care Code 31791 Initial Inpt Care Lvl 3 Diagnoses Facial numbness R20.0
[2021-08-29 08:41] LABS: Estimated Average Glucose 114 mg/dl; Hemoglobin A1C 5.6 % (4.5-5.6)
[2021-08-29] MEDS ORDERED: CALCIUM 600MG + VIT D 400 IU TAB PO SCH (09:00)
[2021-08-29] MEDS ORDERED: OMEGA-3 (PURIFIED FISH OIL) 1 GM CAP PO SCH (09:00)
[2021-08-29] MEDS ORDERED: CHOLECALCIFEROL 1,000 UNITS 25 MCG TAB PO SCH (09:00)
[2021-08-29] MEDS ORDERED: TOBRAMYCIN/DEXAMETHASONE OPH OINT 3.5 GM TUBE OP SCH (09:00)
[2021-08-29] MEDS ORDERED: ASPIRIN 81 MG ECTAB PO SCH (09:00)
[2021-08-29] MEDS ORDERED: STROKE PATIENT DISCHARGE STA (10:00)
--- NOTE | 2021-08-29 12:03 | XCELERA ---
[id number]
--- NOTE | 2021-08-29 12:52 | Electrocardiogram Report ---
Test Reason : Blood Pressure : / mmHG Vent. Rate : 052 BPM Atrial Rate : 052 BPM P-R Int : 188 ms QRS Dur : 104 ms QT Int : 462 ms P-R-T Axes : 067 -29 038 degrees QTc Int : 429 ms Sinus bradycardia Incomplete right bundle branch block Poor R wave progression, consider anterior WA vs. lead placement vs. LVH Abnormal ECG When compared with ECG of 04-JUL-1995 12:57, Incomplete right bundle branch block is now Present Confirmed by Dhaval Villa ([id number]) on 08/29/2021 12:52:16 PM Referred By: REFERRED SELF Confirmed By:Joo Villa
--- NOTE | 2021-08-29 12:55 | Electrocardiogram Report ---
Test Reason : Blood Pressure : / mmHG Vent. Rate : 058 BPM Atrial Rate : 058 BPM P-R Int : 174 ms QRS Dur : 104 ms QT Int : 468 ms P-R-T Axes : 053 -17 023 degrees QTc Int : 459 ms Sinus bradycardia Incomplete right bundle branch block Minimal voltage criteria for LVH, may be normal variant Borderline ECG When compared with ECG of 28-AUG-2021 15:11, (unconfirmed) No significant change was found Confirmed by Dhaval Villa ([id number]) on 08/29/2021 12:54:33 PM Referred By: REFERRED SELF Confirmed By:Joo Villa
--- NOTE | 2021-08-29 15:18 | Discharge Summary ---
Date of Service August 29, 2021 Admission HPI Per Admitting Provider The patient is a 71-year-old female with a past medical history including lumbar spinal stenosis, chronic venous insufficiency, hyperlipidemia, hypothyroidism, impaired fasting glucose, tremor and vitamin D deficiency. She presents with symptoms as noted above, that have persisted throughout the day without changing in intensity. The only other symptom she has noted is some slight numbness in the tip of her right index finger, that she noticed upon arrival in the ED. She denied any recent change in physical activity. She denies any recent travel or sick exposures. She denies vision change, hearing loss, difficulty with speech or swallowing, memory function or any other focal weakness or change in sensation in upper or lower extremities. Principal Diagnosis Facial numbness, TIA Discharge Exam The patient is awake, alert and oriented 3, well developed and well nourished, normocephalic and atraumatic, lying in bed and in no acute distress. HEENT--PERRL, EOMI, mucous membranes and oropharynx mildly dry Neck--supple. No JVD. No bruits. Thyroid normal, trachea midline, no adenopathy. Heart--normal S1 and S2. No murmurs, rubs or gallops. Lungs--clear bilaterally, no respiratory distress, no accessory muscle use. Abdomen--normal bowel sounds and soft. Mild epigastric and left sided abdominal pain Extremities--no cyanosis or clubbing. No edema. Dermatologic--normal skin turgor, normal color, no abnormal lymph nodes, no rash. Neurologic--cranial nerves II through XII grossly intact. Rheumatologic--normal range of motion. Psychiatric--normal affect. Discharge Data Allergies Allergy/AdvReac Type Severity Reaction Status Date / Time crab Allergy Intermediate RASH, Verified 08/28/21 17:43 SWELLING scallops Allergy Intermediate RASH, Verified 08/28/21 17:43 SWELLING strawberry Allergy Intermediate Rash Verified 08/28/21 17:43 Sulfa (Sulfonamide Allergy Intermediate RASH/SWELLI Verified 08/28/21 17:43 Antibiotics) NG Consultations 08/28/21 20:46 ED Decision to Admit Stat 08/28/21 23:53 Consult Neurology Routine Ordered Studies 08/28/21 14:29 CT head/brain wo con Stat 08/28/21 14:46 CT angio head w con Stat CT angio neck with con Stat 08/28/21 21:17 MR brain wo con Stat Hospital Course (1) Facial numbness: Symmetrical bilateral facial numbness- CT head, CTA head and neck all negative MRI brain with small amount of chronic small vessel disease evaluated by neurology, does not think its TIA or stroke (2) Hyperlipidemia: Check a fasting lipid panel, on no recent treatment (3) Hypothyroidism: Continue levothyroxine 100 mcg daily (4) Impaired fasting glucose: Check hemoglobin A1c (5) Vitamin D deficiency: Continue vitamin D3 (6) Cardiac murmur: Murmur noted on examination. Reports having had a murmur when she was Order complete echocardiogram as noted Total Time Total Time Spent Total Time Spent (In Minutes): 35 Discharge Plan Discharge Items Patient Disposition: Home - Self-Care Reason For Visit: FACIAL NUMBNESS Discharge Diagnosis: Facial Numbness Activity: Resume your previous activity Non-emergency contact: Primary Care Provider Call non-emergency contact if: you have any medication questions Follow-up/Referrals: Brock Ortiz MD [Primary Care Provider] - Diet: Regular Addtl Attending Provider Instructions: please make appointment to follow up with your PCP Check and Monitor your BP everyday Pending Studies at Discharge: No Stand-Alone Forms: My [employer], Smoking Cessation Medications and DC Order Prescriptions: New atorvastatin 40 mg tablet 40 mg PO DAILY Qty: 30 RF: 0 Continued levothyroxine 100 mcg tablet 100 mcg PO DAILY Qty: 90 RF: 3 Premarin 0.625 mg/gram cream See Rx Instructions .ROUTE .COMPLEX Qty: 30 RF: 6 Vitamin D3 4,000 unit Capsule 4,000 unit PO QAM RF: 0 Mentcle-3 350 mg-235 mg- 90 mg-597 mg capsule,delayed release(DR/EC) 2 cap PO QAM RF: 0 Caltrate 600 plus D 600 mg (1,500 mg)-800 unit Tablet,Chewable 1 tab PO QAM RF: 0 TobraDex 0.3-0.1 % ointment 1 applic ophthalmic (eye) TID RF: 0 Discharge Orders: Discharge Order (Routine); Ordered 08/29/21 Ordered By: Brenton Diego Admission Data Admit Date/Time: 08/28/21 23:38 Attending Provider: Brenton Diego Admit Provider: Brandon White Primary Care Provider: Brock Ortiz Other Providers: Brandon White ; Emory Guerra Other Interventions: Discharge Summary Assessment (RN) Last Done: 08/29/21 10:23 Coding Level of Care Code D/C DAY MANAGEMENT >30 MINS Diagnoses Facial numbness R20.0 Hyperlipidemia E78.00; E78.0 Hyperlipidemia type: pure hypercholesterolemia Hypothyroidism E03.9 Hypothyroidism type: acquired Impaired fasting glucose R73.01 Vitamin D deficiency E55.9 Cardiac murmur R01.1 Time Spent (min) 35
== END 2021-08-29 11:00 | disposition home or self-care (01) ==
LOC: 2S 12:53 → ED 12:53 → SUATTDRO 23:38 → 2S 08-29 00:19